=== PATIENT | female | born 1965 | race Two or more races ===

== ENCOUNTER 2016-11-12 14:21 | Emergency (ER) | payer SELFPAY ==
[~2016-11-12] VITALS: Ht 170.2 cm; Wt 74.0 kg
[2016-11-12 14:53] VITALS: BP 154/96
== END 2016-11-12 17:35 | disposition left against medical advice (07) ==
LOC: ER 14:21
DX: Z53.21 Procedure and treatment not carried out due to patient leaving prior to being seen by health care provider (principal)